=== PATIENT | male | born 1960 | race Caucasian/White ===

== ENCOUNTER 2025-03-12 00:21 | Emergency (ER) | payer MEDICARE ==
[~2025-03-12] VITALS: Ht 180.3 cm; Wt 74.4 kg
[~2025-03-12 00:21] MED LIST: AMOCLA875 PO; NICO21TP TOP
== END 2025-03-12 02:00 | disposition home or self-care (01) ==
LOC: ER 00:21
DX: S63.283A Dislocation of proximal interphalangeal joint of left middle finger, initial encounter (principal); S01.81XA Laceration without foreign body of other part of head, initial encounter; J44.9 Chronic obstructive pulmonary disease, unspecified; F17.200 Nicotine dependence, unspecified, uncomplicated; Z59.89 Other problems related to housing and economic circumstances; W01.0XXA Fall on same level from slipping, tripping and stumbling without subsequent striking against object, initial encounter
CPT/HCPCS: 12011; 26770; 73130; 73140; 99284-25